=== PATIENT | female | born 1980 | race Hispanic/Latino ===

== ENCOUNTER 2018-07-14 21:02 | Emergency (ER) | payer BC ==
--- OUTSIDE RECORDS SUMMARY | 2018-07-14 21:04 | XMS REPORT | Continuity of Care Document ---
:1980 Author Organization Interface Problems Problem Status Onset Classification Date Comments Source Date Reported J45.909 Active [facility] W/ DLCO 7 Medications Medication Details Route Status Patient Ordering Order Source Instructions Provider Date Allergies, Adverse Reactions, Alerts Substance Category Reaction Severity Reaction Status Date Comments Source type Reported Immunizations Immunization Date Given Site Status Last Updated Comments Source Results Order Results Value Reference Date Interpretation Comments Source Name Range Vital Signs Vital Sign Value Date Comments Source Weight 118.182 09/25/2016 [facility] BMI Calculated 46.89 09/25/2016 [facility] Height 158.75 cm 09/25/2016 [facility] Encounters Location Location Encounter Encounter Reason Attending ADM DC Status Source Details Type Number For Provider Date Date Visit [facility] Outpatient [id number] Ciaran 09/25 09/26 Lionel Santos /2016 [facility] Procedures Procedure Code Date Perfomer Comments Source
--- OUTSIDE RECORDS SUMMARY | 2018-07-14 21:04 | XMS REPORT | Summary of Care ---
:1980 Author Organization [facility] Address [address] [place] [id number] Encounter HQ Trudyr_sohail(FIN) [id number] Date(s): 09/25/16 - 09/25/[address] [address]- Discharge Disposition: Home or Self Care Attending Physician: Ciaran Santos MD Referring Physician: Ciaran Santos MD Vital Signs Most recent to oldest [Reference Range]: 1 Height 158.75 cm (09/25/16 10:51 AM) Weight 118.182 kg (09/25/16 10:51 AM) Body Mass Index 46.89 m2 (09/25/16 10:51 AM) Problem List No data available for this section Allergies, Adverse Reactions, Alerts No data available for this section Medications No data available for this section Results No data available for this section Immunizations No data available for this section Procedures No data available for this section Social History No data available for this section Assessment and Plan No data available for this section
--- NOTE | 2018-07-14 21:38 | RAD REPORT ---
EXAM DESCRIPTION: CT - Head Brain Wo Cont - 07/14/2018 9:32 pm CLINICAL HISTORY: DIZZINESS Headache, drowsiness COMPARISON: No comparisons TECHNIQUE: All CT scans are performed using dose optimization technique as appropriate and may inclu de automated exposure control or mA/KV adjustment according to patient size. FINDINGS: No intracranial hemorrhage, hydrocephalus or extra-axial fluid collection.No areas of brai n edema or evidence of midline shift. The paranasal sinuses and mastoids are clear. The calvarium is intact. IMPRESSION: No acute intracranial abnormality.
[2018-07-14 22:28] LABS: Urine Blood NEGATIVE (NEG); Urine Glucose NEGATIVE (NEG); Urine Protein NEGATIVE (NEG)
[2018-07-14] MEDS ORDERED: NA CHLORIDE 0.9% 1,000 ML ONE (22:29)
[2018-07-14] MEDS ORDERED: METOCLOPRAMIDE 10 MG/2mL INJ ONE (22:29)
[2018-07-14] MEDS ORDERED: KETOROLAC 30 MG/ML INJ ONE (22:29)
[2018-07-14 22:48] LABS: Urine Bacteria 20-50 /HPF (<20); Urine Culture Reflex Order REFLEXED; Urine RBC NONE SEEN /HPF (NONE SEEN)
--- NOTE | 2018-07-14 23:37 | ER ---
Nurse's Notes [facility] Name: Melanie Cervantes Age: 37 yrs Sex: Female : 1980 Arrival Date: 07/14/2018 Time: 21:03 Bed 14 Private MD: Diagnosis: Headache;Subconjunctival Hemorrhage Presentation: 07/14 21:09 Presenting complaint: Patient states: She feels pressure in her head, its mostly on the aj1 left side since yesterday. Reports tingling in both hands for the past week. She noticed a blood vessel in her eye had popped a couple nights ago, but it has been getting bigger over the past 2 days. Patient states that she feels dizzy when she turns her head or bends down. Transition of care: patient was not received from another setting of care. Onset of symptoms was July 14, 2018. Risk Assessment: Do you want to hurt yourself or someone else? Patient reports no desire to harm self or others. Risk Assessment: Do you want to hurt yourself or someone else?. Initial Sepsis Screen: Does the patient meet any 2 criteria? No. Patient's initial sepsis screen is negative. Does the patient have a suspected source of infection? No. Patient's initial sepsis screen is negative. Care prior to arrival: None. 21:09 Method Of Arrival: Ambulatory [facility] 21:09 Acuity: DONNA 3 aj1 Triage Assessment: 21:13 General: Appears in no apparent distress. uncomfortable, Behavior is calm, cooperative, aj1 appropriate for age. Pain: Complains of pain in left temporal area, left occipital area, left yazidi, left ear, left base of the skull and thoracic area Pain currently is 8 out of 10 on a pain scale. Neuro: Level of Consciousness is awake, alert, obeys commands, Oriented to person, place, time, situation, Moves all extremities. Weakness Gait is steady, Speech is normal, Facial symmetry appears normal, Reports dizziness, headache photophobia. Cardiovascular: Patient's skin is warm and dry. Respiratory: Airway is patent Respiratory effort is even, unlabored, Respiratory pattern is regular, symmetrical. 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 - Social history:: Smoking status: Patient/guardian denies using tobacco. - Ebola Screening: : Patient denies travel to an Ebola-affected area in the 21 days before illness onset. - Family history:: not pertinent. - Hospitalizations: : No recent hospitalization is reported. Screenin:45 Abuse screen: Denies threats or abuse. Denies injuries from another. Nutritional aa1 screening: No deficits noted. Tuberculosis screening: No symptoms or risk factors identified. Fall Risk None identified. Assessment: 21:45 General: Appears in no apparent distress. comfortable, obese, Behavior is calm, aa1 cooperative, appropriate for age. Pain: Complains of pain in forehead, left frontal area, left side of forehead, left temporal area and left yazidi Pain radiates to back and neck Quality of pain is described as aching, throbbing, Pain began 1 day ago. Is continuous. Neuro: Level of Consciousness is awake, alert, obeys commands, Oriented to person, place, time, situation, Career Development Director are equal bilaterally Moves all extremities. Full function Gait is steady, Speech is normal, Facial symmetry appears normal, Pupils are PERRLA, Reports paresthesias in right hand and left hand since 1-2 weeks. Cardiovascular: Denies chest pain, palpitations, Heart tones S1 S2 present Rhythm is regular. Respiratory: Airway is patent Respiratory effort is even, unlabored, Respiratory pattern is regular, symmetrical. GI: No signs and/or symptoms were reported involving the gastrointestinal system. : EENT: Sclera/Cornea subconjunctival hemorrhage noted to L sclera. Derm: Skin is intact, is healthy with good turgor, Skin is pink, warm \T\ dry. Musculoskeletal: Circulation, motion, and sensation intact. Capillary refill < 3 seconds. 23:42 Reassessment: Patient appears in no apparent distress at this time. Patient is alert, aa1 oriented x 3, equal unlabored respirations, skin warm/dry/pink. Discussed d/c \T\ f/u instructions with pt \T\ spouse; denies questions or concerns at this time Patient states feeling better. Vital Signs: 21:13 BP 141 / 86; Pulse 75; Resp 18; Temp 97.4; Pulse Ox 100% on R/A; Weight 117.03 kg (R); aj1 Height 5 ft. 2 in. (157.48 cm) (R); Pain 8/10; 22:48 BP 127 / 71; Pulse 79; Resp 20; Pulse Ox 98% on R/A; aa1 21:13 Body Mass Index 47.19 (117.03 kg, 157.48 cm) aj1 [place] Coma Score: 23:31 Eye Response: spontaneous(4). Verbal Response: oriented(5). Motor Response: obeys rn commands(6). Total: 15. ED Course: 21:03 Patient arrived in ED. al2 21:12 Triage completed. aj1 21:15 Arm band placed on Patient placed in waiting room, Patient notified of wait time. aj1 21:32 CT Head Brain wo Cont In Process Unspecified. EDMS 21:40 Maurisio Schumacher MD is Attending Physician. rn 21:45 Patient has correct armband on for positive identification. Bed in low position. Call aa1 light in reach. Pulse ox on. NIBP on. 22:13 Jessica West, RN is Primary Nurse. aa1 22:30 Urine collected: clean catch specimen, clear. aa1 22:35 Missed attempt(s): 20 gauge in right antecubital area. Bleeding controlled, band aid aa1 applied, catheter tip intact. 22:40 Inserted saline lock: 20 gauge in left antecubital area, using aseptic technique. aa1 Patient maintains SpO2 saturation greater than 95% on room air. 23:42 No provider procedures requiring assistance completed. IV discontinued, intact, aa1 bleeding controlled, No redness/swelling at site. Pressure dressing applied. Administered Medications: 22:43 Drug: Reglan 10 mg Route: IVP; Site: left antecubital; aa1 23:41 Follow up: Response: No adverse reaction; Marked relief of symptoms aa1 22:43 Drug: TORadol 30 mg Route: IVP; Site: left antecubital; aa1 23:41 Follow up: Response: No adverse reaction; Pain is decreased aa1 22:44 Drug: NS 0.9% 1000 ml Route: IV; Rate: 1000 ml; Site: left antecubital; aa1 23:41 Follow up: IV Status: Completed infusion aa1 Outcome: 23:36 Discharge ordered by . rn 23:42 Discharged to home ambulatory, with significant other. aa1 23:42 Condition: good 23:42 Discharge instructions given to patient, significant other, Instructed on discharge instructions, follow up and referral plans. medication usage, Demonstrated understanding of instructions, follow-up care, medications. 23:43 Patient left the ED. aa1 Signatures: Dispatcher [employer] EDMS Jimena Whitmore RN RN aj1 Jessica West RN RN aa1 Maurisio Schumacher MD MD rn Love, Angelica al2 Corrections: (The following items were deleted from the chart) 23:43 21:45 EENT: No signs and/or symptoms were reported regarding the EENT system. aa1 aa1
--- NOTE | 2018-07-14 23:37 | EDPHYS ---
Physician Documentation [facility] Name: Melanie Cervantes Age: 37 yrs Sex: Female : 1980 Arrival Date: 07/14/2018 Time: 21:03 Bed 14 Private MD: ED Physician Maurisio Schumacher HPI: 07/14 23:31 This 37 yrs old Female presents to ER via Ambulatory with complaints of rn headache. 23:31 The patient complains of pain to the top of head. The patient describes the headache as rn aching. Onset: The symptoms/episode began/occurred yesterday. Severity of symptoms: At its worst the pain was moderate, in the emergency department the pain is unchanged. The symptoms are alleviated by nothing. the symptoms are aggravated by stress. The patient has experienced similar episodes in the past. Reports headache, began yesterday, aching, began after argument with , no fever, no trauma, + sensitive to light and sound, + hx of migraine but this feels slightly different, also noticed blood in left eye. . 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 - Social history:: Smoking status: Patient/guardian denies using tobacco. - Ebola Screening: : Patient denies travel to an Ebola-affected area in the 21 days before illness onset. - Family history:: not pertinent. - Hospitalizations: : No recent hospitalization is reported. ROS: 23:31 Constitutional: Negative for fever, chills, and weight loss, Eyes: Negative for injury, rn pain, redness, and discharge, Neck: Negative for injury, pain, and swelling, Cardiovascular: Negative for chest pain, palpitations, and edema, Respiratory: Negative for shortness of breath, cough, wheezing, and pleuritic chest pain, Abdomen/GI: Negative for abdominal pain, diarrhea, and constipation, MS/Extremity: Negative for injury and deformity, Skin: Negative for injury, rash, and discoloration, Neuro: + headache, no focal weakness/numbness Exam: 23:31 Constitutional: This is a well developed, well nourished patient who is awake, alert, rn and in no acute distress, wearing sunglasses and lights off. Head/Face: Normocephalic, atraumatic. Eyes: + left subconjunctival hemorrhage, EOMI, normal visual acuity Cardiovascular: Regular rate and rhythm with a normal S1 and S2. No pulse deficits. Respiratory: No increased work of breathing, no retractions or nasal flaring. Abdomen/GI: soft, non-tender Skin: Warm, dry with normal turgor. Normal color with no rashes, no lesions, and no evidence of cellulitis. MS/ Extremity: Pulses equal, no cyanosis. Neurovascular intact. Full, normal range of motion. Equal circumference. Neuro: Awake and alert, GCS 15, oriented to person, place, time, and situation. Cranial nerves II-XII grossly intact. Motor strength 5/5 in all extremities. Sensory grossly intact. Cerebellar exam normal. Vital Signs: 21:13 BP 141 / 86; Pulse 75; Resp 18; Temp 97.4; Pulse Ox 100% on R/A; Weight 117.03 kg (R); aj1 Height 5 ft. 2 in. (157.48 cm) (R); Pain 8/10; 22:48 BP 127 / 71; Pulse 79; Resp 20; Pulse Ox 98% on R/A; aa1 21:13 Body Mass Index 47.19 (117.03 kg, 157.48 cm) aj1 [place] Coma Score: 23:31 Eye Response: spontaneous(4). Verbal Response: oriented(5). Motor Response: obeys rn commands(6). Total: 15. MDM: 21:40 Patient medically screened. rn 23:31 Differential diagnosis: migraine, tension headache, vasomotor headache. rn 23:34 Data reviewed: vital signs, nurses notes, lab test result(s), radiologic studies, CT rn scan, and as a result, I will discharge patient. Counseling: I had a detailed discussion with the patient and/or guardian regarding: the historical points, exam findings, and any diagnostic results supporting the discharge/admit diagnosis, lab results, radiology results, the need for outpatient follow up, to return to the emergency department if symptoms worsen or persist or if there are any questions or concerns that arise at home. Response to treatment: the patient's symptoms have markedly improved after treatment, and as a result, I will discharge patient. Special discussion: I discussed with the patient/guardian in detail that at this point there is no indication for admission to the hospital. It is understood, however, that if the symptoms persist or worsen the patient needs to return immediately for re-evaluation. 07/14 21:47 Order name: Urine Microscopic Only; Complete Time: 23:31 rn 07/14 22:23 Order name: Urine Dipstick--Ancillary (enter results); Complete Time: 23:31 ag4 07/14 21:15 Order name: CT Head Brain wo Cont; Complete Time: 21:39 aj1 07/14 22:23 Order name: Urine --Ancillary (enter results); Complete Time: 23:31 ag4 07/14 22:49 Order name: Urine Culture [facility] 07/14 21:47 Order name: IV Start; Complete Time: 22:44 rn 07/14 21:47 Order name: Urine Test (obtain specimen); Complete Time: 22:44 rn 07/14 21:47 Order name: Urine Dipstick-Ancillary (obtain specimen); Complete Time: 22:44 rn Administered Medications: 22:43 Drug: Reglan 10 mg Route: IVP; Site: left antecubital; aa1 23:41 Follow up: Response: No adverse reaction; Marked relief of symptoms aa1 22:43 Drug: TORadol 30 mg Route: IVP; Site: left antecubital; aa1 23:41 Follow up: Response: No adverse reaction; Pain is decreased aa1 22:44 Drug: NS 0.9% 1000 ml Route: IV; Rate: 1000 ml; Site: left antecubital; aa1 23:41 Follow up: IV Status: Completed infusion aa1 Disposition: 07/14/18 23:36 Discharged to Home. Impression: Headache, Subconjunctival Hemorrhage. - Condition is Stable. - Discharge Instructions: General Headache Without Cause, Subconjunctival Hemorrhage. - Medication Reconciliation Form, Thank You Letter, Antibiotic Education, Prescription Opioid Use form. - Follow up: Private Physician; When: As needed; Reason: Recheck today's complaints, Re-evaluation by your physician. - Problem is new. - Symptoms have improved. Signatures: Dispatcher [employer] Jimena Reddy RN RN aj1 Jessica West RN RN aa1 Maurisio Schumacher MD MD technology intern: (The following items were deleted from the chart) 23:43 23:36 07/14/2018 23:36 Discharged to Home. Impression: Headache; Subconjunctival aa1 Hemorrhage. Condition is Stable. Forms are Medication Reconciliation Form, Thank You Letter, Antibiotic Education, Prescription Opioid Use. Follow up: Private Physician; When: As needed; Reason: Recheck today's complaints, Re-evaluation by your physician. Problem is new. Symptoms have improved. rn
== END 2018-07-14 23:43 | disposition home or self-care (01) ==
LOC: ER 21:02
DX: H11.32 Conjunctival hemorrhage, left eye (principal); J45.909 Unspecified asthma, uncomplicated; Z91.018 Allergy to other foods
CPT/HCPCS: 70450; 81003; 81015; 81025; 87086; 87088; 96361; 96374; 96375; 99284; J2765; J7030

== ENCOUNTER 2019-01-28 17:54 | Emergency (ER) | payer BC ==
--- OUTSIDE RECORDS SUMMARY | 2019-01-28 17:58 | XMS REPORT | Continuity of Care Document ---
:1980 Author Organization [facility] [facility] Care Team Providers Name Role Phone [employer] [facility] Unavailable Unavailable Problems Problem Status Onset Classification Date Comments Source Date Reported J45.909 Active [facility] W/ DLCO 7 Medications No Data Provided for This Section Allergies, Adverse Reactions, Alerts No Known Medication Allergies Immunizations No Data Provided for This Section Results No Data Provided for This Section Pathology Reports No Data Provided for This Section Diagnostic Reports No Data Provided for This Section Consultation Notes No Data Provided for This Section Discharge Summaries No Data Provided for This Section History and Physicals No Data Provided for This Section Vital Signs Vital Sign Value Date Comments Source Weight 118.182 09/25/2016 [facility] BMI Calculated 46.89 09/25/2016 [facility] Height 158.75 cm 09/25/2016 [facility] Encounters Location Location Encounter Encounter Reason Attending ADM DC Status Source Details Type Number For Provider Date Date Visit [facility] Outpatient [id number] Ciaran 09/25 09/26 Lionel Santos /2016 [facility] Procedures No Data Provided for This Section Assessment and Plan No Data Provided for This Section Plan of Care No Data Provided for This Section Social History Social History Date Source No data available for this 09/26/2016 [facility] section Family History No Data Provided for This Section Advance Directives No Data Provided for This Section Functional Status No Data Provided for This Section
[2019-01-28 19:21] LABS: Absolute Lymphocytes (CBC) 3.2 K/uL (0.7-4.9); Basophils % 0.6 % (0-1.3); Lymphocytes % 30.6 % (15.3-44.8); MPV 8.2 fL (7.6-11.3); RBC Red Blood Cell Count 4.34 M/uL (3.86-4.86)
[2019-01-28 19:36] LABS: BUN Blood Urea Nitrogen 14 mg/dL (7-18); Bicarbonate 29 mmol/L (21-32); Glucose Level 95 mg/dL (74-106); Potassium 3.8 mmol/L (3.5-5.1); Sodium Level 140 mmol/L (136-145); Troponin (Emerg Dept Use Only) < 0.02 ng/mL (0.0-0.045)
--- NOTE | 2019-01-28 19:57 | ER ---
Nurse's Notes [facility] Name: Melanie Cervantes Age: 38 yrs Sex: Female : 1980 Arrival Date: 01/28/2019 Time: 17:59 Bed 24 Private MD: None, None Diagnosis: Radiculopathy Presentation: 01/28 18:04 Presenting complaint: Patient states: i feel like albertina been pinched on my chest and i hj felt like my L arm is numbed; i went to my doctor and told me it might be a pulled muscle, and my feet are swollen, and its been like that 3 days ago; denies N/V;. Transition of care: patient was not received from another setting of care. Onset of symptoms was January 28, 2019. Risk Assessment: Do you want to hurt yourself or someone else? Patient reports no desire to harm self or others. Initial Sepsis Screen: Does the patient meet any 2 criteria? No. Patient's initial sepsis screen is negative. Does the patient have a suspected source of infection? No. Patient's initial sepsis screen is negative. Care prior to arrival: None. 18:04 Method Of Arrival: Ambulatory 18:04 Acuity: DONNA 3 hj Historical: - Allergies: 18:06 [place]; hj - PMHx: 18:06 Asthma; Migraines; hj - PSHx: 18:06 Tubal ligation; hj Screenin:10 Abuse screen: Denies threats or abuse. Denies injuries from another. Nutritional aa1 screening: No deficits noted. Tuberculosis screening: No symptoms or risk factors identified. Fall Risk None identified. Assessment: 19:19 General: Appears in no apparent distress. comfortable, Behavior is calm, cooperative, aa1 appropriate for age. Pain: Complains of pain in chest Pain does not radiate. Pain currently is 7 out of 10 on a pain scale. Pain began 2-3 days ago. Is continuous. Neuro: Level of Consciousness is awake, alert, obeys commands, Oriented to person, place, time, situation, Moves all extremities. Full function Gait is steady, Speech is normal. Cardiovascular: Reports chest pain, Denies diaphoresis, nausea, palpitations, shortness of breath, Heart tones S1 S2 present Capillary refill < 3 seconds Clubbing of nail beds is absent JVD is absent Patient's skin is warm and dry. Rhythm is regular. Respiratory: Airway is patent Respiratory effort is even, unlabored, Respiratory pattern is regular, symmetrical. GI: No signs and/or symptoms were reported involving the gastrointestinal system. : No signs and/or symptoms were reported regarding the genitourinary system. EENT: No signs and/or symptoms were reported regarding the EENT system. Derm: Skin is intact, is healthy with good turgor, Skin is pink, warm \T\ dry. Musculoskeletal: Circulation, motion, and sensation intact. Capillary refill < 3 seconds. 20:21 Reassessment: Patient appears in no apparent distress at this time. Patient is alert, aa1 oriented x 3, equal unlabored respirations, skin warm/dry/pink. Discussed d/c \T\ f/u instructions with pt \T\ spouse; denies questions or concerns at this time. Ambultory to lobby with steady gait. Patient states feeling better. Vital Signs: 18:06 BP 142 / 83; Pulse 62; Resp 18; Temp 97.4(TE); Pulse Ox 100% on R/A; Weight 120.2 kg; hj Height 5 ft. 2 in. (157.48 cm); Pain 7/10; 19:10 BP 134 / 78; Pulse 61; Resp 18; Pulse Ox 98% on R/A; aa1 20:21 BP 132 / 81; Pulse 67; Resp 18; Temp 97.8; Pulse Ox 98% on R/A; Pain 4/10; aa1 18:06 Body Mass Index 48.47 (120.20 kg, 157.48 cm) ED Course: 17:59 Patient arrived in ED. dp 18:00 None, None is Private Physician. dp 18:05 Triage completed. hj 18:06 Arm band placed on right wrist. hj 18:26 Poornima Simpson RN is Primary Nurse. aj 18:28 Marzena Aguirre FNP-C [facility]. kb 18:28 Maurisio Schumacher MD is Attending Physician. kb 19:10 Patient has correct armband on for positive identification. Bed in low position. Call aa1 light in reach. Report received from Poornima Simpson RN. Pulse ox on. NIBP on. 19:10 Initial lab(s) drawn, by me, sent to lab. Inserted saline lock: 20 gauge in left aa1 antecubital area, using aseptic technique. Blood collected. Patient maintains SpO2 saturation greater than 95% on room air. 19:24 Chest Single View XRAY In Process Unspecified. EDMS 20:21 No provider procedures requiring assistance completed. IV discontinued, intact, aa1 bleeding controlled, No redness/swelling at site. Pressure dressing applied. Administered Medications: No medications were administered Outcome: 19:57 Discharge ordered by . vilma 20:21 Discharged to home ambulatory, with significant other. aa1 20:21 Condition: good 20:21 Discharge instructions given to patient, significant other, Instructed on discharge instructions, follow up and referral plans. Demonstrated understanding of instructions, follow-up care. 20:23 Patient left the ED. aa1 Signatures: Dispatcher [employer] EDMS Marzena Aguirre, DISP[employer] DEPARTMENT-Sam BUCHANANP-Jessica Copeland, RN RN aa1 Poornima Simpson RN Romel Oreilly RN RN hj Pena, Darian dp
--- NOTE | 2019-01-28 19:57 | EDPHYS ---
Physician Documentation [facility] Name: Melanie Cervantes Age: 38 yrs Sex: Female : 1980 Arrival Date: 01/28/2019 Time: 17:59 Bed 24 Private MD: None, None ED Physician Maurisio Schumacher HPI: 01/28 20:05 This 38 yrs old Female presents to ER via Ambulatory with complaints of Chest kb Pain. 20:08 The patient or guardian reports chest pain that is located primarily in the anterior kb chest wall, left. The pain radiates to the left arm. Associated signs and symptoms: Pertinent positives: None. The chest pain is described as pinching. Duration: The patient or guardian reports multiple episodes. Modifying factors: The symptoms are alleviated by nothing. the symptoms are aggravated by activity. Severity of pain: At its worst the pain was mild in the emergency department the pain has improved. The patient has not experienced similar symptoms in the past. The patient has been recently seen by a physician: the patient's primary care provider, yesterday, with similar presenting complaints. Pt reports she has had a pinching pain to left upper chest/shoulder area for the past 2 days. Was seen by PCP yesterday, had blood work done that was normal and told it was a pinched nerve. Given muscle relaxers and anti-inflammatories yesterday. States she came today because she was on her way to the gym and felt the pain radiate down her arm when she moved it. Pain is gone at this time, but wanted to double check it before going to [facility]. States "I just want a quick fix.". Historical: - Allergies: 18:06 Mcloud; hj - PMHx: 18:06 Asthma; Migraines; hj - PSHx: 18:06 Tubal ligation; hj ROS: 20:06 Constitutional: Negative for fever, chills, and weight loss, ENT: Negative for injury, kb pain, and discharge, Neck: Negative for injury, pain, and swelling, Respiratory: Negative for shortness of breath, cough, wheezing, and pleuritic chest pain, Abdomen/GI: Negative for abdominal pain, nausea, vomiting, diarrhea, and constipation, Back: Negative for injury and pain, : Negative for injury, bleeding, discharge, and swelling, MS/Extremity: Negative for injury and deformity, Skin: Negative for injury, rash, and discoloration, Neuro: Negative for headache, weakness, numbness, tingling, and seizure. 20:06 Cardiovascular: Positive for chest pain. Exam: 20:06 Constitutional: This is a well developed, well nourished patient who is awake, alert, kb and in no acute distress. Head/Face: Normocephalic, atraumatic. ENT: Nares patent. No nasal discharge, no septal abnormalities noted. Tympanic membranes are normal and external auditory canals are clear. Oropharynx with no redness, swelling, or masses, exudates, or evidence of obstruction, uvula midline. Mucous membranes moist. Neck: Trachea midline, no thyromegaly or masses palpated, and no cervical lymphadenopathy. Supple, full range of motion without nuchal rigidity, or vertebral point tenderness. No Meningismus. Chest/axilla: Normal chest wall appearance and motion. Nontender with no deformity. No lesions are appreciated. Cardiovascular: Regular rate and rhythm with a normal S1 and S2. No gallops, murmurs, or rubs. Normal PMI, no JVD. No pulse deficits. Respiratory: Lungs have equal breath sounds bilaterally, clear to auscultation and percussion. No rales, rhonchi or wheezes noted. No increased work of breathing, no retractions or nasal flaring. Abdomen/GI: Soft, non-tender, with normal bowel sounds. No distension or tympany. No guarding or rebound. No evidence of tenderness throughout. Skin: Warm, dry with normal turgor. Normal color with no rashes, no lesions, and no evidence of cellulitis. MS/ Extremity: Pulses equal, no cyanosis. Neurovascular intact. Full, normal range of motion. Neuro: Awake and alert, GCS 15, oriented to person, place, time, and situation. Cranial nerves II-XII grossly intact. Motor strength 5/5 in all extremities. Sensory grossly intact. Cerebellar exam normal. Normal gait. Vital Signs: 18:06 BP 142 / 83; Pulse 62; Resp 18; Temp 97.4(TE); Pulse Ox 100% on R/A; Weight 120.2 kg; hj Height 5 ft. 2 in. (157.48 cm); Pain 7/10; 19:10 BP 134 / 78; Pulse 61; Resp 18; Pulse Ox 98% on R/A; aa1 20:21 BP 132 / 81; Pulse 67; Resp 18; Temp 97.8; Pulse Ox 98% on R/A; Pain 4/10; aa1 18:06 Body Mass Index 48.47 (120.20 kg, 157.48 cm) MDM: 18:28 Patient medically screened. kb 19:56 Data reviewed: vital signs, nurses notes. Data interpreted: Pulse oximetry: on room air kb is 98 %. Interpretation: normal. Counseling: I had a detailed discussion with the patient and/or guardian regarding: the historical points, exam findings, and any diagnostic results supporting the discharge/admit diagnosis, lab results, radiology results, the need for outpatient follow up, a family practitioner, to return to the emergency department if symptoms worsen or persist or if there are any questions or concerns that arise at home. 20:06 ECG:. kb 01/28 18:45 Order name: CBC with Diff kb 01/28 18:45 Order name: Basic Metabolic Panel; Complete Time: 19:47 kb 01/28 18:05 Order name: EKG - Nurse/Tech; Complete Time: 18:11 hj 01/28 18:45 Order name: Chest Single View XRAY; Complete Time: 20:02 kb 01/28 18:45 Order name: Troponin (emerg Dept Use Only); Complete Time: 19:47 kb 01/28 18:45 Order name: IV Start; Complete Time: 19:17 kb EC:06 Rate is 65 beats/min. Rhythm is regular, Normal Sinus Rhythm. QRS [place] is Normal. NC kb interval is normal at 138 msec. QRS interval is normal at 96 msec. QT interval is normal at 448 msec. Interpreted by me. Reviewed by me. Administered Medications: No medications were administered Disposition: 01/29 06:56 Co-signature as Attending Physician, Maurisio Schumacher MD. rn Disposition: 01/28/19 19:57 Discharged to Home. Impression: Radiculopathy. - Condition is Stable. - Discharge Instructions: Radicular Pain. - Medication Reconciliation Form, Thank You Letter, Antibiotic Education, Prescription Opioid Use form. - Follow up: Emergency Department; When: As needed; Reason: Worsening of condition. Follow up: Private Physician; When: 2 - 3 days; Reason: Recheck today's complaints, Continuance of care, Re-evaluation by your physician. Signatures: Dispatcher [employer] EDMarzena Marquez, EXHIBITION DESIGNER-C EXHIBITION DESIGNER-Ckb Jessica Ruvalcaba RN RN aa1 Maurisio Schumacher MD MD rn Joaquin, Henry, RN RN Corrections: (The following items were deleted from the chart) 01/28 20:23 19:57 01/28/2019 19:57 Discharged to Home. Impression: Radiculopathy. Condition is aa1 Stable. Forms are Medication Reconciliation Form, Thank You Letter, Antibiotic Education, Prescription Opioid Use. Follow up: Emergency Department; When: As needed; Reason: Worsening of condition. Follow up: Private Physician; When: 2 - 3 days; Reason: Recheck today's complaints, Continuance of care, Re-evaluation by your physician. kb
--- NOTE | 2019-01-28 20:01 | RAD REPORT ---
EXAM DESCRIPTION: RAD - Chest Single View - 01/28/2019 7:19 pm CLINICAL HISTORY: CHEST PAIN Chest pain. COMPARISON: Chest Pa And Lat (2 Views) dated 09/02/2016; Chest Pa And Lat (2 Views) dated 08/19/2016; C hest Single View dated 05/28/2016; Chest Pa And Lat (2 Views) dated 10/17/2015 FINDINGS: Portable technique limits examination quality. The lungs are grossly clear. The heart is mildly prominent in size. No displaced fractures.
--- NOTE | 2019-01-29 10:49 | EKG ---
Test Date: 2019-01-28 Test Time: 18:13:28 Orthopaedic Nurse: JD MEASUREMENT RESULTS: Intervals: Rate: 65 IA: 138 QRSD: 96 QT: 448 QTc: 465 [place]: P: 72 IA: 138 QRS: 41 T: 26 INTERPRETIVE STATEMENTS: Normal sinus rhythm with sinus arrhythmia Normal ECG Compared to ECG 03/28/2011 17:54:33 T-wave abnormality no longer present Electronically Signed On 01-29-19 10:47:52 CDT by Mono Ivan
== END 2019-01-28 20:23 | disposition home or self-care (01) ==
LOC: ER 17:54
DX: R07.9 Chest pain, unspecified (principal); M54.10 Radiculopathy, site unspecified; J45.909 Unspecified asthma, uncomplicated
CPT/HCPCS: 36415; 71045; 80048; 84484; 85025; 93005; 99284

== ENCOUNTER 2022-05-22 11:14 | Emergency (ER) | payer BC, SELFPAY ==
[2022-05-22] MEDS ORDERED: METHYLPREDNISOLONE 125 MG INJ ONE (12:09)
[2022-05-22] MEDS ORDERED: MAGNESIUM SULFATE 1 gm IVPB 1 GM/100 ML BAG IV ONE (12:10)
[2022-05-22] MEDS ORDERED: LEVALBUTEROL 1.25 MG/3 ML NEB ONE ×2 (12:10→12:11)
[2022-05-22 12:34] LABS: Hematocrit 36.5 % (36.0-45.0); Lymphocytes % 14.6 % (15.3-44.8); MCV 80.9 fL (80-100); MPV 7.9 fL (7.6-11.3); RBC Red Blood Cell Count 4.51 M/uL (3.86-4.86)
[2022-05-22 13:20] LABS: SARS-COV-2 RT PCR NEGATIVE (NEGATIVE)
[2022-05-22] MEDS ORDERED: ACETAMINOPHEN 325 MG TABLET ONE (13:26)
[2022-05-22 13:49] LABS: Potassium 3.4 mmol/L (3.5-5.1)
--- NOTE | 2022-05-22 15:21 | ER ---
Nurse's Notes [facility] Name: Melanie Cervantes Age: 41 yrs Sex: Female : 1980 Arrival Date: 05/22/2022 Time: 11:15 Bed 26 Private MD: Diagnosis: Unspecified asthma with (acute) exacerbation Presentation: 05/22 11:42 Chief complaint: Patient states: started feeling SOB last night, made appointment with [facility] raquel but its not until , took 2 puffs my inhaler and it's not helping with a bad headache and cough. Coronavirus screen: Vaccine status: Patient reports being unvaccinated. Client denies travel out of the [place] in the last 14 days. Ebola Screen: Patient negative for fever greater than or equal to 101.5 degrees Fahrenheit, and additional compatible Ebola Virus Disease symptoms Patient denies exposure to infectious person. Patient denies travel to an Ebola-affected area in the 21 days before illness onset. Initial Sepsis Screen: Does the patient meet any 2 criteria? No. Patient's initial sepsis screen is negative. Does the patient have a suspected source of infection? No. Patient's initial sepsis screen is negative. Risk Assessment: Do you want to hurt yourself or someone else? Patient reports no desire to harm self or others. 11:42 Method Of Arrival: Ambulatory [facility] 11:42 Acuity: DONNA 3 [facility] Triage Assessment: 11:44 General: Appears uncomfortable, obese, well groomed, well developed, Behavior is calm, [facility] cooperative, appropriate for age. Pain: Denies pain. Respiratory: Reports shortness of breath cough that is Onset: The symptoms/episode began/occurred gradually, the patient has mild shortness of breath. TICKET MARKER: 11:44 LMP 05/19/2022 [facility] Historical: - Allergies: 11:44 Mitchell; [facility] - PMHx: 11:44 Asthma; Migraines; Diabetes mellitus; [facility] - Immunization history:: Adult Immunizations up to date. - Social history:: Smoking status: Patient denies any tobacco usage or history of. Screenin:07 Abuse screen: Denies threats or abuse. Denies injuries from another. Nutritional tp1 screening: No deficits noted. Tuberculosis screening: No symptoms or risk factors identified. Fall Risk None identified. Assessment: 12:05 General: Appears in no apparent distress. comfortable, Behavior is calm, cooperative. tp1 Pain: Complains of pain in chest Pain does not radiate. Quality of pain is described as pressure. Neuro: Level of Consciousness is awake, alert, obeys commands, Oriented to person, place, time, situation. Cardiovascular: Denies chest pressure/tightness Patient's skin is warm and dry. Respiratory: Airway is patent Respiratory effort is even, unlabored, Breath sounds with wheezes bilaterally. GI: No signs and/or symptoms were reported involving the gastrointestinal system. : No signs and/or symptoms were reported regarding the genitourinary system. EENT: No signs and/or symptoms were reported regarding the EENT system. Derm: Skin is pink, warm \T\ dry. Musculoskeletal: Circulation, motion, and sensation intact. 13:08 Reassessment: Patient appears in no apparent distress at this time. Patient and/or tp1 family updated on plan of care and expected duration. Pain level reassessed. Patient is alert, oriented x 3, equal unlabored respirations, skin warm/dry/pink. CO headache, provider notified. 13:30 Reassessment: states chest does not feel as tight as it was. tp1 14:14 Reassessment: Patient appears in no apparent distress at this time. No changes from tp1 previously documented assessment. Patient is alert, oriented x 3, equal unlabored respirations, skin warm/dry/pink. states headache is unchanged. 15:08 Reassessment: Patient appears in no apparent distress at this time. Patient is alert, tp1 oriented x 3, equal unlabored respirations, skin warm/dry/pink. CO back pain, provider notified. Vital Signs: 11:42 BP 150 / 79; Pulse 102; Resp 26; Temp 98.6; Pulse Ox 94% ; Weight 114.31 kg; Height 5 jh5 ft. 2 in. (157.48 cm); Pain 0/10; 13:29 BP 153 / 83; Pulse 110; Resp 18; Pulse Ox 95% on R/A; tp1 14:14 BP 128 / 59; Pulse 102; Resp 18; Pulse Ox 95% on R/A; tp1 15:21 BP 133 / 66; Pulse 102; Resp 16; Pulse Ox 93% on R/A; tp1 11:42 Body Mass Index 46.09 (114.31 kg, 157.48 cm) [facility] ED Course: 11:15 Patient arrived in ED. as 11:44 Triage completed. [facility] 11:44 Arm band placed on right wrist. [facility] 11:46 Jesus Moreno PA is PHCP. [facility] 11:46 Fei Arriaga MD is Attending Physician. [facility] 12:04 Milagro Quach, MUKESH is Primary Nurse. tp1 12:10 Patient has correct armband on for positive identification. Bed in low position. Call tp1 light in reach. Pulse ox on. NIBP on. 12:22 Inserted saline lock: 20 gauge in left antecubital area, using aseptic technique. Blood tp1 collected. 13:30 No provider procedures requiring assistance completed. tp1 Administered Medications: 12:15 Drug: Xopenex (levalbuterol) (3) 1.25 mg Route: Inhalation; tp1 13:31 Follow up: Response: Marked relief of symptoms tp1 12:24 Drug: SOLU-Medrol (methylPrednisoLONE) 125 mg Route: IVP; Site: left antecubital; tp1 13:31 Follow up: Response: Marked relief of symptoms tp1 12:29 Drug: Magnesium Sulfate 1 grams Route: IVPB; Infused Over: 1 hrs; Site: left tp1 antecubital; 13:49 Follow up: IV Status: Completed infusion; IV Intake: 100ml tp1 13:29 Drug: Acetaminophen 650 mg Route: PO; tp1 14:15 Follow up: Response: Pain is unchanged, physician notified tp1 15:32 Follow up: Response: Pain is unchanged, physician notified tp1 Medication: 13:07 VIS not applicable for this client. tp1 Intake: 13:49 IV: 100ml; Total: 100ml. tp1 Outcome: 15:20 Discharge ordered by . [facility] 15:32 Discharged to home ambulatory. tp1 15:32 Condition: good 15:32 Discharge instructions given to patient, Instructed on discharge instructions, follow up and referral plans. medication usage, Demonstrated understanding of instructions, follow-up care, medications, Prescriptions given X 2. 15:32 Patient left the ED. tp1 Signatures: Jesus Moreno PA PA jmm Martinez, Amelia as Rees, Jessica, RN RN [facility] Main, Milagro, RN RN tp1
--- NOTE | 2022-05-22 15:21 | EDPHYS ---
Physician Documentation [facility] Name: Melanie Cervantes Age: 41 yrs Sex: Female : 1980 Arrival Date: 05/22/2022 Time: 11:15 Bed 26 Private MD: ED Physician Fei Arriaga HPI: 05/22 11:57 This 41 yrs old Female presents to ER via Ambulatory with complaints of m Shortness Of Breath, Asthma Exacerbation. 11:57 Is a 41-year-old female with history of asthma, migraines, diabetes mellitus presents [facility] emerged part with complaints of cough and shortness of breath beginning last night. Patient attributes this to an asthma exacerbation. Denies fever or chills.. CATCHER PLUG: 11:44 LMP 05/19/2022 [facility] Historical: - Allergies: 11:44 [place]; [facility] - PMHx: 11:44 Asthma; Migraines; Diabetes mellitus; [facility] - Immunization history:: Adult Immunizations up to date. - Social history:: Smoking status: Patient denies any tobacco usage or history of. ROS: 11:57 Constitutional: Negative for fever, chills, and weight loss, Cardiovascular: Negative jm for chest pain, palpitations, and edema. 11:57 Respiratory: Positive for cough, shortness of breath, wheezing. 11:57 All other systems are negative. Exam: 11:57 Constitutional: This is a well developed, well nourished patient who is awake, alert, jmm and in no acute distress. Head/Face: atraumatic. Eyes: EOMI, no conjunctival erythema appreciated ENT: Moist Mucus Membranes Neck: Trachea midline, Supple Chest/axilla: Normal chest wall appearance and motion. Cardiovascular: Regular rate and rhythm. No edema appreciated 11:57 Abdomen/GI: Non distended Back: Normal ROM Skin: General appearance color normal MS/ Extremity: Moves all extremities, no obvious deformities appreciated, no edema noted to the lower extremities Neuro: Awake and alert Psych: Behavior is normal, Mood is normal, Patient is cooperative and pleasant 11:57 Respiratory: Respirations: labored breathing, that is mild, Breath sounds: wheezing: that is mild. Vital Signs: 11:42 BP 150 / 79; Pulse 102; Resp 26; Temp 98.6; Pulse Ox 94% ; Weight 114.31 kg; Height 5 jh5 ft. 2 in. (157.48 cm); Pain 0/10; 13:29 BP 153 / 83; Pulse 110; Resp 18; Pulse Ox 95% on R/A; tp1 14:14 BP 128 / 59; Pulse 102; Resp 18; Pulse Ox 95% on R/A; tp1 15:21 BP 133 / 66; Pulse 102; Resp 16; Pulse Ox 93% on R/A; tp1 11:42 Body Mass Index 46.09 (114.31 kg, 157.48 cm) [facility] MDM: 11:57 Patient medically screened. [facility] 15:18 Data reviewed: vital signs, nurses notes. Counseling: I had a detailed discussion with [facility] the patient and/or guardian regarding: the historical points, exam findings, and any diagnostic results supporting the discharge/admit diagnosis, lab results, the need for outpatient follow up, to return to the emergency department if symptoms worsen or persist or if there are any questions or concerns that arise at home. Response to treatment: the patient's symptoms have markedly improved after treatment, and as a result, I will discharge patient. 15:18 ED course: Patient states feeling better on reevaluation. Increased breath sounds are [facility] appreciated on auscultation. Patient is alert nontoxic in appearance. Afebrile. Patient advised to follow-up PCP and otherwise given strict return precautions. Patient understood and agrees plan of care.. 05/22 12:00 Order name: CBC with Diff; Complete Time: 13:16 [facility] 05/22 12:00 Order name: BMP; Complete Time: 13:49 [facility] 05/22 12:01 Order name: COVID-19/FLU A+B; Complete Time: 13:25 [facility] 05/22 12:35 Order name: Glucose, Ancillary Testing; Complete Time: 12:35 [facility] 05/22 12:00 Order name: Saline Lock; Complete Time: 13:05 [facility] 05/22 12:51 Order name: Labs - recollect needed: recollect green top; Complete Time: 13:23 bd Administered Medications: 12:15 Drug: Xopenex (levalbuterol) (3) 1.25 mg Route: Inhalation; tp1 13:31 Follow up: Response: Marked relief of symptoms tp1 12:24 Drug: SOLU-Medrol (methylPrednisoLONE) 125 mg Route: IVP; Site: left antecubital; tp1 13:31 Follow up: Response: Marked relief of symptoms tp1 12:29 Drug: Magnesium Sulfate 1 grams Route: IVPB; Infused Over: 1 hrs; Site: left tp1 antecubital; 13:49 Follow up: IV Status: Completed infusion; IV Intake: 100ml tp1 13:29 Drug: Acetaminophen 650 mg Route: PO; tp1 14:15 Follow up: Response: Pain is unchanged, physician notified tp1 15:32 Follow up: Response: Pain is unchanged, physician notified tp1 Disposition: 05/23 07:29 Co-signature as Attending Physician, Fei Arriaga MD I agree with the assessment and rt plan of care. Disposition Summary: 05/22/22 15:20 Discharge Ordered Location: Home [facility] Condition: Stable [facility] Diagnosis - Unspecified asthma with (acute) exacerbation [facility] Followup: [facility] - With: Private Physician - When: 2 - 3 days - Reason: Recheck today's complaints, Continuance of care, Re-evaluation by your physician Discharge Instructions: - Discharge Summary Sheet [facility] - Asthma, Adult [facility] Forms: - Medication Reconciliation Form [facility] - Thank You Letter [facility] - Antibiotic Education [facility] - Prescription Opioid Use [facility] Prescriptions: - Prednisone 20 mg Oral Tablet - take 3 tablets by ORAL route once daily for 5 days; 15 tablet; Refills: 0, [facility] Product Selection Permitted - Albuterol Sulfate 2.5 mg /3 mL (0.083 %) Inhalation Solution for Nebulization - inhale 1 unit by NEBULIZATION route every 8 hours As needed; 1 box; Refills: 0, [facility] Product Selection Permitted Signatures: Dispatcher [employer] Rosa Maria Nascimento Joel, PA PA [facility] Lesia Uriostegui RN RN jh5 Milagro Quach RN RN tp1 Fei Arriaga MD MD rt
[2022-05-22 15:46] VITALS: TEMP 98.6
[2022-05-22 15:49] VITALS: BP 133/66; O2SAT 93
== END 2022-05-22 15:32 | disposition home or self-care (01) ==
LOC: ER 11:14
DX: J45.901 Unspecified asthma with (acute) exacerbation (principal); Z91.018 Allergy to other foods; Z20.822 Contact with and (suspected) exposure to COVID-19
CPT/HCPCS: 0240U; 36415; 80048; 82947; 85025; 96365; 96375; 99284; J2930; J3475; J7614

== ENCOUNTER 2025-03-20 05:18 | Emergency (ER) | payer SELFPAY ==
--- OUTSIDE RECORDS SUMMARY | 2025-03-20 05:20 | XMS REPORT | Continuity of Care Document ---
Author Name Unknown Address [address] [facility] Address [address] [facility] [address] [place] [address] Care Team Providers Care Food Mixer Assembler Name Role Phone GC_CPC_WalkInSchedul Attending Clinician Unavail able GC_GCBZW_Kadiyala_S Attending Clinician Unavaila ble GC_CPC_WalkInSchedul Admitting Clinician Unavail able GC_GCBZW_Kadiyala_S Admitting Clinician Unavaila ble Payers Payer Name Policy Type Policy Number Effective Date Expirati on Date Source Problems Condition Name Condition Details Condition Category Status Onset Date Resolution Date Last Treatment Date Treating Clinician Comments Source Acute upper respirator y infection Acute Upper Respirator y Infection Problem Active 7- 00:00: 00 [facility] Amygdaloli th Amygdaloli th Problem Active 7- 00:00: 00 [facility] Perennial allergic rhinitis with seasonal variation Perennial Allergic Rhinitis with Seasonal Variation Problem Active 7- 00:00: 00 [facility] Viral upper respirator y tract infection Viral Upper Respirator y Tract Infection Problem Active 2-17 00:00: 00 [facility] Influenza caused by Influenza A virus Influenza Caused by Influenza a Virus Problem Active 2-17 00:00: 00 [facility] Migraine without aura Migraine without Aura Problem Active - 00:00: 00 [facility] Common cold Common Cold Problem Active 1- 00:00: 00 [facility] Upper respirator y infection Upper Respirator y Infection Problem Active 02-25 00:00: 00 [facility] Exacerbati on of intermitte nt asthma Exacerbati on of Intermitte nt Asthma Problem Active 02-25 00:00: 00 [facility] Expiratory wheezing Expiratory Wheezing Problem Active 8 00:00: 00 [facility] Acute sinusitis Acute Sinusitis Problem Active 2 00:00: 00 [facility] Seasonal allergic rhinitis Seasonal Allergic Rhinitis Problem Active 2 00:00: 00 [facility] Wheezing Wheezing Problem Active 2 00:00: 00 [facility] Asthma Asthma Problem Active 01-04 00:00: 00 [facility] Irregular intermenst rual bleeding Irregular Intermenst rual Bleeding Problem Active 01-04 00:00: 00 [facility] Uncontroll ed type 2 diabetes mellitus Uncontroll ed Type 2 Diabetes Mellitus Problem Active 01-04 00:00: 00 [facility] Hyperlipid emia Hyperlipid emia Problem Active 01-04 00:00: 00 [facility] Obesity Obesity Problem Active 01-04 00:00: 00 [facility] Anemia Anemia Problem Active 01-04 00:00: 00 [facility] Herpetic vulvovagin itis Herpetic Vulvovagin itis Problem Active 11-29 00:00: 00 [facility] Anemia due to chronic blood loss Anemia Due to Chronic Blood Loss Problem Active 11-29 00:00: 00 [facility] Essential hypertensi on Essential Hypertensi on Problem Active 11-29 00:00: 00 [facility] Polymenorr hea Polymenorr hea Problem Active 11-29 00:00: 00 [facility] Excessive and frequent menstruati on Excessive and Frequent Menstruati on Problem Active 11-29 00:00: 00 [facility] Pruritus of vulva Pruritus of Vulva Problem Active 11-29 00:00: 00 [facility] Hyperglyce lisa due to type 2 diabetes mellitus Hyperglyce lisa Due to Type 2 Diabetes Mellitus Problem Active 11-29 00:00: 00 [facility] Excessive menstruati on with irregular cycle Excessive Menstruati on with Irregular Cycle Problem Active 11-29 00:00: 00 [facility] Social History Smoking Status Start Date Stop Date Source Former Smoker [facility] Medications Ordered Medication Name Filled Medication Name Start Date Stop Date Current Medication? Ordering Clinician Indication Dosage Frequency Signature (SIG) Comments Components Source Airsupra 90 mcg-80 mcg/actuati on HFA aerosol inhaler Inhale 2 inhalations every 4 hours by inhalation route as needed. Airsupra 90 mcg-80 mcg/actuati on HFA aerosol inhaler Inhale 2 inhalations every 4 hours by inhalation route as needed. No 2inhala tion(s) Q4H Airsupra 90 mcg-80 mcg/actuat ion HFA aerosol inhaler Inhale 2 inhalation s every 4 hours by inhalation route as needed. [facility]er[facility] HFA 90 mcg/actuati on aerosol inhaler Inhale 2 puffs every 4-6 hours by inhalation route as needed, for shortness of breath/whee zing. albuterol sulfate HFA 90 mcg/actuati on aerosol inhaler Inhale 2 puffs every 4-6 hours by inhalation route as needed, for shortness of breath/whee zing. No 2puff(s ) Q5H albuterol sulfate HFA 90 mcg/actuat ion aerosol inhaler Inhale 2 puffs every 4-6 hours by inhalation route as needed, for shortness of breath/whe ezing. [facility] albuterol sulfate 2.5 mg/3 mL (0.083 %) solution for nebulizatio n Inhale one vial via nebulized inhalation every 4-6 hours as needed for shortness of breath/whee zing albuterol sulfate 2.5 mg/3 mL (0.083 %) solution for nebulizatio n Inhale one vial via nebulized inhalation every 4-6 hours as needed for shortness of breath/whee zing No 3mL Q6H albuterol sulfate 2.5 mg/3 mL (0.083 %) solution for nebulizati on Inhale one vial via nebulized inhalation every 4-6 hours as needed for shortness of breath/whe ezing [facility] Immunizations Ordered Immunization Name Filled Immunization Name Date Status Comments Source tetanus toxoid, unspecified formulation tetanus toxoid, unspecified formulation Unknown Completed [facility] Vital Signs Vital Name Observation Time Observation Value Comments S meera BMI (Body Mass Index) 2025-03-03 00:00:00 48.3 kg/m2 [facility] BP Systolic 2025-03-03 00:00:00 153 mm[Hg] [facility] BP Diastolic 2025-03-03 00:00:00 100 mm[Hg] [facility] Height 2025-03-03 00:00:00 62 [in_i] [facility] Body Weight 2025-03-03 00:00:00 4227.2 [oz_av] [facility] Height 2025-01-01 00:00:00 62 [in_i] [facility] BMI (Body Mass Index) 2025-01-01 00:00:00 48.7 kg/m2 [facility] BP Systolic 2025-01-01 00:00:00 166 mm[Hg] [facility] Body Weight 2025-01-01 00:00:00 4264 [oz_av] [facility] BP Diastolic 2025-01-01 00:00:00 99 mm[Hg] [facility] BP Diastolic 2024-08-18 00:00:00 111 mm[Hg] [facility] Height 2024-08-18 00:00:00 62 [in_i] [facility] BP Systolic 2024-08-18 00:00:00 177 mm[Hg] [facility] BMI (Body Mass Index) 2024-08-18 00:00:00 48.5 kg/m2 [facility] Body Weight 2024-08-18 00:00:00 4242 [oz_av] [facility] Body Weight 2024-07-21 00:00:00 4304 [oz_av] [facility] BP Systolic 2024-07-21 00:00:00 152 mm[Hg] [facility] BP Diastolic 2024-07-21 00:00:00 85 mm[Hg] [facility] Height 2024-07-21 00:00:00 62 [in_i] [facility] BMI (Body Mass Index) 2024-07-21 00:00:00 49.2 kg/m2 [facility] Height 2024-02-26 00:00:00 62 [in_i] [facility] BP Systolic 2024-02-26 00:00:00 168 mm[Hg] [facility] Body Weight 2024-02-26 00:00:00 4240 [oz_av] [facility] BP Diastolic 2024-02-26 00:00:00 82 mm[Hg] [facility] BMI (Body Mass Index) 2024-02-26 00:00:00 48.5 kg/m2 [facility] BP Diastolic 2023-08-28 00:00:00 81 mm[Hg] [facility] BMI (Body Mass Index) 2023-08-28 00:00:00 48.1 kg/m2 [facility] Height 2023-08-28 00:00:00 62 [in_i] [facility] BP Systolic 2023-08-28 00:00:00 126 mm[Hg] [facility] Body Weight 2023-08-28 00:00:00 4208 [oz_av] [facility] Procedures Procedure Date / Time Performed Performing Clinicia n Source MAMMO, screening, digital, bilateral 2024-02-26 00:00:00 [facility] Tubal Ligation [facility] Encounters Start Date/Time End Date/Time Encounter Type Admission Type Attending [facility] Care Facility Care Department Encounter ID Source 2025-03-03 00:00:00 2025-03-03 00:00:00 Amena Gaston, [facility]-BC: [id number] [id number] , Ph. [facility]_CPC_Need myra Office [id number] [facility] 2025-01-01 00:00:00 2025-01-01 00:00:00 Roselyn Garcia, INSEAM LEVELER: [id number] [phone] , Ph. [facility] GC_CPC_Need myra Office [id number] [facility] 2024-08-18 00:00:00 2024-08-18 00:00:00 Luanne Michaels, SPECIAL EDUCATION PRESCHOOL TEACHER: [address] [phone] , Ph. [facility] GC_CPC_Need myra Office [id number] [facility] 2024-07-21 00:00:00 2024-07-21 00:00:00 Joseph Cody, INSEAM LEVELER: [id number] [phone] , Ph. [facility]_CPC_Need [facility] Office [id number] [facility] 2024-02-26 00:00:00 2024-02-26 00:00:00 DENNY Olsen-: [address] [phone] , [facility]. [facility] [id number] [facility] 2023-08-28 00:00:00 2023-08-28 00:00:00 COURTNEY Perez: [address] [place] [phone] , Ph. [facility] Office [id number] [facility] Results Test Description Test Time Test Comments Results Result Co mments Source [facility]
[2025-03-20] MEDS ORDERED: DIPHENHYDRAMINE 50 MG/ML VIAL ONE (06:03)
[2025-03-20] MEDS ORDERED: METOCLOPRAMIDE 10 MG/2mL INJ ONE (06:03)
[2025-03-20] MEDS ORDERED: KETOROLAC 30 MG/ML INJ ONE (06:03)
[2025-03-20] MEDS ORDERED: NA CHLORIDE 0.9% 1,000 ML ONE (06:04)
[2025-03-20 06:10] LABS: Absolute Lymphocytes (CBC) 3.0 K/uL (0.7-4.9); Hematocrit 46.0 % (36.0-45.0); Hemoglobin 15.0 g/dL (12.0-15.0); MCH 26.7 pg (27.0-35.0); MCHC 32.7 g/dL (32.0-36.0); MCV 81.6 fL (80-100); MPV 8.1 fL (7.6-11.3); Nucleated RBC Absolute Count 0.0 (0-0); Nucleated Red Blood Cells % 0.0 % (0-0); RBC Red Blood Cell Count 5.63 M/uL (3.86-4.86); White Blood Count 15.00 thou/uL (4.3-10.9)
[2025-03-20 07:57] LABS: Sqamous Epithelial <5 /HPF (None Seen); Urine Crystals Unidentified Few /HPF (None Seen); Urine Culture Reflex Order NOT NEEDED; Urine Microscopic Reflex YN ORDER UMIC
[2025-03-20 08:01] LABS: ALT/SGPT 56.0 U/L (13-56); AST/SGOT 30.0 U/L (15-37); Albumin 3.1 g/dL (3.4-5.0); Albumin/Globulin Ratio 0.8 (1.1-1.8); Alkaline Phosphatase 117.0 U/L (45-117); Anion Gap 8.9 mEq/L (5.0-15.0); BUN Blood Urea Nitrogen 11.0 mg/dL (7-18); Globulin 3.9 g/dL (2.3-3.5); Glucose Level 214.0 mg/dL (74-106); Potassium 3.9 mEq/L (3.5-5.1)
--- NOTE | 2025-03-20 08:12 | RAD REPORT ---
EXAM: CT Head Brain Wo Cont HISTORY: HEADACHE COMPARISON: 07/14/2018 TECHNIQUE: Multiple contiguous axial images were obtained for a CT of the brain without contrast. Sag ittal and coronal reformats were performed. One or more of the following dose reduction techniques were used: Automated exposure control, adjus tment of the mA and kV according to patient size, and iterative reconstruction. Unless otherwise specified, incidental findings do not require dedicated imaging follow-up. FINDINGS: No evidence of hydrocephalus, intracranial hemorrhage, or extra-axial fluid collection. The brain is normal in morphology. The calvarium is intact. The visualized paranasal sinuses and mastoid air cells are essentially clear . IMPRESSION: No evidence of acute intracranial abnormality.
--- NOTE | 2025-03-20 08:27 | ER ---
Nurse's Notes [facility] Name: Melanie Cervantes Age: 44 yrs Sex: Female : 1980 Arrival Date: 03/20/2025 Time: 05:18 Bed 3 Private MD: Diagnosis: Headache;Obesity, unspecified Presentation: 03/20 05:33 Chief complaint: Patient states: headache and high blood sugar. States she took two cp4 metformin yesterday because glucose was 292. Coronavirus screen: Client denies travel out of the [place] in the last 14 days. At this time, the client does not indicate any symptoms associated with coronavirus-19. Ebola Screen: Patient negative for fever greater than or equal to 101.5 degrees Fahrenheit, and additional compatible Ebola Virus Disease symptoms Patient denies exposure to infectious person. Patient denies travel to an Ebola-affected area in the 21 days before illness onset. No symptoms or risks identified at this time. Initial Sepsis Screen: Does the patient meet any 2 criteria? No. Patient's initial sepsis screen is negative. Does the patient have a suspected source of infection? No. Patient's initial sepsis screen is negative. Risk Assessment: Do you want to hurt yourself or someone else? Patient reports no desire to harm self or others. Onset of symptoms was March 19, 2025. 05:33 Method Of Arrival: Ambulatory [facility] 05:33 Acuity: DONNA 3 cp4 Triage Assessment: 05:35 Headache History: The patient has had previous headaches and this one is similar to cp4 previous episodes. General: Appears in no apparent distress. uncomfortable, Behavior is calm, cooperative, appropriate for age. Pain: Pain currently is 9 out of 10 on a pain scale. Pain began 1 day ago. Also complains of nausea, photophobia. Neuro: Level of Consciousness is awake, alert, obeys commands, Oriented to person, place, time, situation, Appropriate for age. RFP WRITER: 08:42 LMP N/A - , Not ap3 Historical: - Allergies: 05:35 Mitchell; cp4 - PMHx: 05:35 Asthma; diabetes mellitus; Migraines; cp4 - Immunization history:: Adult Immunizations up to date. - Infectious Disease History:: Denies. - Social history:: Smoking status: Patient denies any tobacco usage or history of. - Family history:: not pertinent. Screenin:37 [facility] ED Fall Risk Assessment (Adult) History of falling in the last 3 months, ja5 including since admission No falls in past 3 months (0 pts) Confusion or Disorientation No (0 pts) Intoxicated or Sedated No (0 pts) Impaired Gait No (0 pts) Mobility Assist Device Used No (0 pt) Altered Elimination No (0 pt) Score/Fall Risk Level 0 - 2 = Low Risk. Abuse screen: Denies threats or abuse. Denies injuries from another. Nutritional screening: No deficits noted. Tuberculosis screening: No symptoms or risk factors identified. Assessment: 05:37 General: Appears in no apparent distress. Behavior is calm, cooperative, appropriate ja5 for age, Reports EMESIS, ABDOMINAL PAIN. Pain: Complains of pain in abdomen Pain does not radiate. Pain currently is 6 out of 10 on a pain scale. Quality of pain is described as aching, Pain began suddenly, 3 hours ago. Neuro: No deficits noted. Busby Agitation-Sedation Scale (RASS): 0 - Alert and Calm Level of Consciousness is awake, alert, obeys commands, Oriented to person, place, time, situation, Appropriate for age Facial symmetry appears normal, Pupils are PERRLA, Pupil Size: 2. Cardiovascular: No deficits noted. Reports nausea, Capillary refill < 3 seconds Clubbing of nail beds is absent JVD is absent Patient's skin is warm and dry. Chest pain is denied. Respiratory: No deficits noted. Airway is patent Trachea midline Respiratory effort is even, unlabored. GI: Abdomen is round Reports cramping, vomiting. : No deficits noted. No signs and/or symptoms were reported regarding the genitourinary system. 07:30 Reassessment: Patient is alert, oriented x 3, equal unlabored respirations, skin nh2 warm/dry/pink. Vital Signs: 05:33 BP 158 / 113; Pulse 85; Resp 18; Temp 97.7; Pulse Ox 95% ; Weight 119.75 kg; Height 5 cp4 ft. 2 in. ; Pain 9/10; 05:42 BP 141 / 96; Pulse 83; Resp 16; Pulse Ox 96% on R/A; ja5 07:32 BP 154 / 99; Pulse 84; Resp 16; Pulse Ox 97% on R/A; af3 05:33 Body Mass Index 48.29 (119.75 kg, 157.48 cm) cp4 05:33 Pain Scale: Adult cp4 Bud Coma Score: 05:37 Eye Response: spontaneous(4). Motor Response: obeys commands(6). Verbal Response: ja5 oriented(5). Total: 15. 05:51 Eye Response: spontaneous(4). Motor Response: obeys commands(6). Verbal Response: diana oriented(5). Total: 15. NIH Stroke Scale Scores: 05:49 NIHSS Score: 0 diana ED Course: 05:22 Patient arrived in ED. mr 05:30 Juan Gannon MD is Attending Physician. diana 05:35 Triage completed. cp4 05:35 Arm band placed on right wrist. Patient placed in waiting room. cp4 05:37 Patient has correct armband on for positive identification. Bed in low position. Side ja5 rails up X 1. FAMILY AT THE BEDSIDE. Client placed on continuous cardiac and pulse oximetry monitoring. NIBP monitoring applied. shot hole shooter on. Pulse ox on. NIBP on. PT BG= 221. 05:37 Provided Education on: MD AT THE BEDSIDE . Door closed. Noise minimized. Lights dimmed. ja5 Warm blanket given. 05:37 No provider procedures requiring assistance completed. ja5 05:59 CMP Sent. ja5 05:59 CBC with Manual Differential Sent. ja5 06:00 Inserted saline lock: 20 gauge in right antecubital area, using aseptic technique. ja5 06:01 Martha Ennis is Primary Nurse. ja5 06:13 CMP Sent. ja5 06:13 CBC with Manual Differential Sent. ja5 06:[address] BY RETIREMENT MANAGER. ja5 06:58 CT Head Brain wo Cont In Process Unspecified. EDMS 07:07 Report given to DAYANNA MAYORGA IN THE ED. ja5 07:10 Attending Physician role handed off by Juan Gannon MD ms3 07:10 Darren Mccray DO is Attending Physician. ms3 07:30 Lab(s) recollected, by me, sent to lab. nh2 08:27 Dipesh Ley MD is Referral Physician. ms3 08:41 IV discontinued, intact, bleeding controlled, No redness/swelling at site. Pressure ap3 dressing applied. Administered Medications: 06:12 Drug: diphenhydrAMINE IVP 50 mg IVP once Route: IVP; Site: right antecubital; 5 08:41 Follow up: Response: No adverse reaction ap3 06:12 Drug: NS 0.9% IV 1000 ml IV at 1000 ml once; to be given as a bolus over 60 minutes ja5 Route: IV; Rate: 1000 ml; Site: right antecubital; 08:41 Follow up: IV Status: Completed infusion; IV Intake: 1000ml ap3 06:13 Drug: Ketorolac IVP 30 mg IVP once Route: IVP; Site: right antecubital; ja5 08:41 Follow up: Response: No adverse reaction; Pain is decreased ap3 06:13 Drug: metoCLOPramide IVP 20 mg IVP once; over 15 mins Route: IVP; Site: right ja5 antecubital; 08:41 Follow up: Response: No adverse reaction ap3 Medication: 05:37 VIS not applicable for this client. ja5 Intake: 08:41 IV: 1000ml; Total: 1000ml. ap3 Outcome: 05:37 Condition: stable ja5 08:27 Discharge ordered by MD. ms3 08:42 Discharged to home ambulatory, with family, ap3 08:42 Discharge instructions given to patient, family, Instructed on discharge instructions, follow up and referral plans. medication usage, Demonstrated understanding of instructions, follow-up care, medications, Prescriptions given X 3, 08:43 Patient left the ED. ap3 NIH Stroke Scale - NIH Stroke Score Date: 03/20/2025 Time: 05:49 Total Score = 0 10. Dysarthria (speech clarity - read or repeat words) - 0(Normal) 11. Extinction and Inattention (visual/tactile/auditory/spatial/personal) - 0(No abnormality) 1a. Level of Consciousness (LOC) - 0(Alert) 1b. Level of Consciousness (LOC) (Month \T\ Age) - 0(Both) 1c. LOC Commands (Open \T\ Closes Eyes/Rrt) - 0(Both) 2. Best Gaze (Lateral Gaze Paresis) - 0(Normal) 3. Visual Field Loss - 0(No visual loss) 4. Facial Palsy - 0(Normal) 5a. Left Arm: Motor (10-second hold) - 0(No drift) 5b. Right Arm: Motor (10-second hold) - 0(No drift) 6a. Left Leg: Motor (5-second hold - always test supine) - 0(No drift) 6b. Right Leg: Motor (5-second hold - always test supine) - 0(No drift) 7. Limb Ataxia (finger/nose \T\ heel/loera - test with eyes open) - 0(Absent) 8. Sensory Loss (pinprick arms/legs/face) - 0(Normal) 9. Best Language: Aphasia (description/naming/reading) - 0(No aphasia) Initials: [facility] Signatures: Dispatcher [employer] EDJuan Alex MD MD cha Rivera, Maia, Reg Reg mr Poornima Meredith, RN RN ap3 Darren Mccray, DO DAVILA ms3 Linda Sanchez cp4 Shanon Mendoza RN RN af3 Brijesh Adams Jr, RN RN [facility] Martha Ennis
--- NOTE | 2025-03-20 08:27 | EDPHYS ---
Physician Documentation [facility] Name: Melanie Cervantes Age: 44 yrs Sex: Female : 1980 Arrival Date: 03/20/2025 Time: 05:18 Bed 3 Private MD: ED Physician Darren Mccray HPI: 03/20 05:49 This 44 yrs old Female presents to ER via Ambulatory with complaints of diana Headache, Abdominal Cramping, High Blood Sugar. 05:49 The patient complains of pain to the top of head, forehead, left frontal area, left diana side of the back of head, right frontal area and right side of the back of head. The patient describes the headache as aching. Onset: The symptoms/episode began/occurred 4 day(s) ago. Associated signs and symptoms: The patient has no apparent associated signs or symptoms. Severity of symptoms: At its worst the pain was moderate, in the emergency department the pain is unchanged. Headache History: The patient has had previous headaches and this one is similar to previous episodes. The symptoms are alleviated by nothing. the symptoms are aggravated by lights, movement. The patient has experienced similar episodes in the past. 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 - Infectious Disease History:: Denies. - Social history:: Smoking status: Patient denies any tobacco usage or history of. - Family history:: not pertinent. ROS: 05:49 Constitutional: Negative for fever, chills, and weight loss, Eyes: Negative for injury, diana pain, redness, and discharge, ENT: Negative for injury, pain, and discharge, Neck: Negative for injury, pain, and swelling, Cardiovascular: Negative for chest pain, palpitations, and edema, Respiratory: Negative for shortness of breath, cough, wheezing, and pleuritic chest pain, Abdomen/GI: Negative for abdominal pain, nausea, vomiting, diarrhea, and constipation, Back: Negative for injury and pain, : Negative for injury, bleeding, discharge, and swelling, MS/Extremity: Negative for injury and deformity, Skin: Negative for injury, rash, and discoloration, Psych: Negative for depression, anxiety, suicide ideation, homicidal ideation, and hallucinations, Allergy/Immunology: Negative for hives, rash, and allergies, Endocrine: Negative for neck swelling, polydipsia, polyuria, polyphagia, and marked weight changes, Hematologic/Lymphatic: Negative for swollen nodes, abnormal bleeding, and unusual bruising, 05:49 Neuro: Positive for headache, Exam: 05:49 Constitutional: This is a well developed, well nourished patient who is awake, alert, diana and in no acute distress. Head/Face: Normocephalic, atraumatic. Eyes: Pupils equal round and reactive to light, extra-ocular motions intact. Lids and lashes normal. Conjunctiva and sclera are non-icteric and not injected. Cornea within normal limits. Periorbital areas with no swelling, redness, or edema. ENT: Nares patent. No nasal discharge, no septal abnormalities noted. Tympanic membranes are normal and external auditory canals are clear. Oropharynx with no redness, swelling, or masses, exudates, or evidence of obstruction, uvula midline. Mucous membranes moist. Neck: Trachea midline, no thyromegaly or masses palpated, and no cervical lymphadenopathy. Supple, full range of motion without nuchal rigidity, or vertebral point tenderness. No Meningismus. Chest/axilla: Normal chest wall appearance and motion. Nontender with no deformity. No lesions are appreciated. Cardiovascular: Regular rate and rhythm with a normal S1 and S2. No gallops, murmurs, or rubs. Normal PMI, no JVD. No pulse deficits. Respiratory: Lungs have equal breath sounds bilaterally, clear to auscultation and percussion. No rales, rhonchi or wheezes noted. No increased work of breathing, no retractions or nasal flaring. Abdomen/GI: Soft, non-tender, with normal bowel sounds. No distension or tympany. No guarding or rebound. No evidence of tenderness throughout. Back: No spinal tenderness. No costovertebral tenderness. Full range of motion. Skin: Warm, dry with normal turgor. Normal color with no rashes, no lesions, and no evidence of cellulitis. MS/ Extremity: Pulses equal, no cyanosis. Neurovascular intact. Full, normal range of motion., bilateral aka Psych: Awake, alert, with orientation to person, place and time. Behavior, mood, and affect are within normal limits. 05:49 Neuro: Orientation: is normal, appropriate for stated age, no acute changes, Mentation: is normal, appropriate for stated age, no acute changes, Memory: is normal, appropriate for stated age, no acute changes, Cranial nerves: grossly normal, is grossly normal based on the patient's age, no acute changes, Cerebellar function: is grossly normal, is grossly normal based on the patient's age, no acute changes, Motor: is normal, is grossly normal based on the patient's age, no acute changes, moves all fours, strength is normal, Sensation: is normal, 06:36 Neck: External neck: is normal, no acute changes, C-spine: Trachea: is midline with no diana obvious abnormalities, ROM/movement: is normal, no acute changes, pain, is not appreciated, limited range of motion, is not appreciated, Meningeal signs: are not present, nuchal rigidity, is not appreciated, Lymph nodes: no appreciated lymphadenopathy, Vital Signs: 05:33 BP 158 / 113; Pulse 85; Resp 18; Temp 97.7; Pulse Ox 95% ; Weight 119.75 kg; Height 5 cp4 ft. 2 in. ; Pain 9/10; 05:42 BP 141 / 96; Pulse 83; Resp 16; Pulse Ox 96% on R/A; ja5 07:32 BP 154 / 99; Pulse 84; Resp 16; Pulse Ox 97% on R/A; af3 05:33 Body Mass Index 48.29 (119.75 kg, 157.48 cm) cp4 05:33 Pain Scale: Adult cp4 NIH Stroke Scale Scores: 05:49 NIHSS Score: 0 diana Bud Coma Score: 05:37 Eye Response: spontaneous(4). Motor Response: obeys commands(6). Verbal Response: ja5 oriented(5). Total: 15. 05:51 Eye Response: spontaneous(4). Motor Response: obeys commands(6). Verbal Response: diana oriented(5). Total: 15. MDM: 05:30 Medical Screening Exam initiated diana 05:51 Differential diagnosis: cluster headache, hyponatremia, neoplasm, subarachnoid bleed, diana subdural hematoma, temporal arteritis, tension headache, traumatic injuries, trigeminal neuralgia, uremia, vasomotor headache. Data reviewed: vital signs, nurses notes, lab test result(s), radiologic studies, CT scan. Consideration of Admission/Observation Escalation of care including admission/observation considered. I considered the following discharge prescriptions or medication management in the emergency department Medications were administered in the Emergency Department. See MAR. Independent interpretation of the following test(s) in the Emergency Department CT Scan: My interpretation is ct h , cta h/n. Care significantly affected by the following chronic conditions: Diabetes, asthma, migraine. 07:10 Transition of care: Care assumed from Juan Gannon MD. ms3 08:28 ED course: On reevaluation patient alert and orient x 4, no apparent distress, ms3 nontoxic-appearing, speaking full sentences. Abdominal exam benign. Patient to follow-up with Dr. Ley in 2 to 3 days. Patient or stands and agrees with plan. All questions were answered. Return precautions were discussed to include fevers, chills, neck pain, worsening symptoms, or any other concerns.. 03/20 05:47 Order name: Glucose, Ancillary Testing; Complete Time: 05:49 EDMS 03/20 05:49 Order name: CBC with Manual Differential [facility] 03/20 05:49 Order name: CMP; Complete Time: 08:10 [facility] 03/20 05:49 Order name: UA Rfx Mark Cult if indicated; Complete Time: 08:10 [facility] 03/20 05:49 Order name: CT Head Brain wo Cont; Complete Time: 08:15 [facility] 03/20 05:29 Order name: Accucheck Blood Glucose; Complete Time: 05:36 cp 03/20 05:49 Order name: Oxygen: 2 l; Complete Time: 06:00 [facility] 03/20 06:15 Order name: Labs - recollect needed: recollect green top/ hemolyzed per Audra; eb Complete Time: 07:40 03/20 07:03 Order name: Misc. Order: get ua; Complete Time: 07:43 [facility] Administered Medications: 06:12 Drug: diphenhydrAMINE IVP 50 mg IVP once Route: IVP; Site: right antecubital; ja5 08:41 Follow up: Response: No adverse reaction ap3 06:12 Drug: NS 0.9% IV 1000 ml IV at 1000 ml once; to be given as a bolus over 60 minutes ja5 Route: IV; Rate: 1000 ml; Site: right antecubital; 08:41 Follow up: IV Status: Completed infusion; IV Intake: 1000ml ap3 06:13 Drug: Ketorolac IVP 30 mg IVP once Route: IVP; Site: right antecubital; ja5 08:41 Follow up: Response: No adverse reaction; Pain is decreased ap3 06:13 Drug: metoCLOPramide IVP 20 mg IVP once; over 15 mins Route: IVP; Site: right ja5 antecubital; 08:41 Follow up: Response: No adverse reaction ap3 Disposition Summary: 03/20/25 08:27 Discharge Ordered Notes: Location: Home ms3 Problem: new ms3 Symptoms: have improved ms3 Condition: Stable ms3 Diagnosis - Headache ms3 - Obesity, unspecified ms3 Followup: diana - With: Private Physician - When: 2 - 3 days - Reason: Recheck today's complaints, Continuance of care, Re-evaluation by your physician Followup: diana - With: Dipesh Ley MD - When: 2 - 3 days - Reason: Recheck today's complaints, Re-evaluation by your physician Discharge Instructions: - Discharge Summary Sheet diana - General Headache Without Cause diana - Migraine Headache diana - Obesity, Adult diana - Migraine Headache, [id number] diana - General Headache Without Cause, [id number] diana Forms: - Medication Reconciliation Form ms3 - Antibiotic Education ms3 - Prescription Opioid Use ms3 - Patient Portal Instructions ms3 - Leadership Thank You Letter ms3 Prescriptions: - ondansetron 4 mg Oral Tablet,disintegrating - take 1 tablet ORAL route every 6 hours as needed for nausea and vomiting; 20 diana tablet; Refills: 0, Product Selection Permitted - Ibuprofen 600 mg Oral Tablet - take 1 tablet ORAL route every 6 hours As needed take with food; 30 tablet; diana Refills: 0, Product Selection Permitted - Tylenol-Codeine #3 300mg-30mg Oral tablet - take 2 tablets ORAL route every 6 hours As needed; 20 tablet; Refills: 0, diana Product Selection Permitted NIH Stroke Scale - NIH Stroke Score Date: 03/20/2025 Time: 05:49 Total Score = 0 10. Dysarthria (speech clarity - read or repeat words) - 0(Normal) 11. Extinction and Inattention (visual/tactile/auditory/spatial/personal) - 0(No abnormality) 1a. Level of Consciousness (LOC) - 0(Alert) 1b. Level of Consciousness (LOC) (Month \T\ Age) - 0(Both) 1c. LOC Commands (Open \T\ Closes Eyes/Brass Polisher) - 0(Both) 2. Best Gaze (Lateral Gaze Paresis) - 0(Normal) 3. Visual Field Loss - 0(No visual loss) 4. Facial Palsy - 0(Normal) 5a. Left Arm: Motor (10-second hold) - 0(No drift) 5b. Right Arm: Motor (10-second hold) - 0(No drift) 6a. Left Leg: Motor (5-second hold - always test supine) - 0(No drift) 6b. Right Leg: Motor (5-second hold - always test supine) - 0(No drift) 7. Limb Ataxia (finger/nose \T\ heel/loera - test with eyes open) - 0(Absent) 8. Sensory Loss (pinprick arms/legs/face) - 0(Normal) 9. Best Language: Aphasia (description/naming/reading) - 0(No aphasia) Initials: diana Signatures: Dispatcher [employer] EDMS Juan Gannon MD MD cha Page, Corey, PA-C PA-C Delmis Hanson Marcus, DO DO ms3 Linda Sanchez cp4 Martha Ennis ja5 Poornima Meredith RN ap3 Corrections: (The following items were deleted from the chart) 05:49 05:49 Neck Angio+CT.RAD.BRZ ordered. EDMS EDMS 06:58 05:49 Head Angio+CT.RAD.BRZ ordered. EDMS EDMS
[2025-03-20 09:19] VITALS: TEMP 97.7
[2025-03-20 09:20] VITALS: BP 154/99; O2SAT 97
[2025-03-20 09:55] LABS: Differential Total Cells Count 100; Segmented Neutrophils 68 % (40-80)
[2025-03-20 09:56] LABS: Blood Morphology Comment NOTED (NOT SEEN); Microcytosis 2+
[2025-03-20 09:57] LABS: Stomatocytes 2+; Teardrop Cell FEW
== END 2025-03-20 08:43 | disposition home or self-care (01) ==
LOC: ER 05:18
DX: R51.9 Headache, unspecified (principal); E66.9 Obesity, unspecified; E11.9 Type 2 diabetes mellitus without complications
CPT/HCPCS: 36415; 70450; 80053; 81001; 82947; 85025; 96361; 96374; 96375; 99285; J1200; J2765; J7030